=== PATIENT | female | born 1960 | race Caucasian/White ===

== ENCOUNTER → 2020-05-25 | Outpatient (CLI) | payer BC ==
--- NOTE | 2020-05-26 07:06 | US ---
EXAMINATION TYPE: US venous doppler duplex LE RT DATE OF EXAM: 05/25/2020 4:24 PM COMPARISON: NONE CLINICAL HISTORY: Elevated D Dimer R79.1. stress fracture to right foot, swelling in foot, no h/o dvt , elevated d-dimer SIDE PERFORMED: Right TECHNIQUE: The lower extremity deep venous system is examined utilizing real time linear array sonog fawad with graded compression, doppler sonography and color-flow sonography. VESSELS IMAGED: Common Femoral Vein Deep Femoral Vein Greater Saphenous Vein * Femoral Vein Popliteal Vein Small Saphenous Vein * Proximal Calf Veins (* superficial vessels) Right Leg: Negative for DVT IMPRESSION: Grayscale, color doppler, spectral doppler imaging performed of the deep veins of the lo wer extremities. There is normal flow, compressibility, vascular waveforms.
== END | disposition home or self-care (01) ==
LOC: RADUSWWP 16:06
PROVIDERS: ATTEND Family Medicine
DX: R79.1 Abnormal coagulation profile (principal)

== ENCOUNTER → 2020-05-26 | Outpatient (CLI) | payer BC | END | disposition home or self-care (01) | LOC: LABWHC1 16:08 | PROVIDERS: ATTEND Physician Assistant | DX: M79.671 Pain in right foot (principal); S92.331A Displaced fracture of third metatarsal bone, right foot, initial encounter for closed fracture | CPT/HCPCS: 36415; 82306 ==

== ENCOUNTER → 2020-07-26 | Outpatient (CLI) | payer BC ==
--- NOTE | 2020-07-26 13:48 | US ---
EXAMINATION TYPE: US venous doppler duplex LE RT DATE OF EXAM: 07/26/2020 12:40 PM COMPARISON: US 2020 CLINICAL HISTORY: M79.661 Pain in rt lower leg. Right ankle swelling SIDE PERFORMED: Right TECHNIQUE: The lower extremity deep venous system is examined utilizing real time linear array sonog fawad with graded compression, doppler sonography and color-flow sonography. VESSELS IMAGED: Common Femoral Vein Deep Femoral Vein Greater Saphenous Vein * Femoral Vein Popliteal Vein Small Saphenous Vein * Proximal Calf Veins (* superficial vessels) Right Leg: Appears negative for DVT IMPRESSION: 1. Right lower extremity ultrasound negative for deep venous thrombosis.
== END | disposition home or self-care (01) ==
LOC: RADUSWWP 12:07
PROVIDERS: ATTEND Orthopaedic Surgery
DX: R22.41 Localized swelling, mass and lump, right lower limb (principal)

== ENCOUNTER → 2020-08-09 | Outpatient (CLI) | payer BC ==
[2020-08-10 01:37] LABS: Basophils # (A) 0.06 X 10*3/uL (0.00-0.10); Basophils % (A) 1.1 %; Eosinophils # (A) 0.05 X 10*3/uL (0.04-0.35); Eosinophils % (A) 0.9 %; HCT 42.1 % (37.2-46.3); HGB 13.7 g/dL (12.0-15.0); Lymphocytes # (A) 1.96 X 10*3/uL (0.90-5.00); Lymphocytes % (A) 36.2 %; MCH 31.6 pg (27.0-32.0); MCHC 32.5 g/dL (32.0-37.0); Mean Platelet Volume 11.7 fL (9.5-12.2); Monocytes # (A) 0.49 X 10*3/uL (0.20-1.00); Monocytes % (A) 9.1 %; Neutrophils # (A) 2.84 X 10*3/uL (1.80-7.70); Neutrophils % (A) 52.5 %; Platelet Count 222 X 10*3/uL (140-440); RBC 4.34 X 10*6/uL (4.10-5.20); RDW 12.2 % (11.5-14.5); WBC 5.41 X 10*3/uL (4.50-10.00)
[2020-08-10 02:45] LABS: C Reactive Protein <0.4 mg/dL (0.0-0.8); Uric Acid 3.7 mg/dL (2.9-7.7)
[2020-08-10 04:38] LABS: Erythrocyte Sedimentation Rate 5 mm/Hr (0-30)
[2020-08-10 11:45] LABS: Anti-DNA, DS unit <1.0 IU/mL; DNA Double-Stranded NEGATIVE (NEGATIVE)
[2020-08-11 11:49] LABS: HLA B27 NEGATIVE
== END | disposition home or self-care (01) ==
LOC: LABWHC1 11:32
PROVIDERS: ATTEND Orthopaedic Surgery
DX: M25.50 Pain in unspecified joint (principal)
CPT/HCPCS: 36415; 84550; 85025; 85652; 86038; 86140; 86225; 86812

== ENCOUNTER → 2021-04-19 | Outpatient (CLI) | payer BC ==
--- NOTE | 2021-04-19 14:56 | XR ---
EXAMINATION TYPE: XR chest 2V DATE OF EXAM: 04/19/2021 COMPARISON: NONE TECHNIQUE: PA and lateral views submitted. HISTORY: Chest pain FINDINGS: The lungs are clear and there is no pneumothorax, pleural effusion, or focal pneumonia. Biapical ple ural thickening. Hyperinflation suggests COPD. Hypertrophic and degenerative change of the spine. Hea rt size normal. No overt failure. IMPRESSION: 1. COPD with biapical pleural thickening.
== END | disposition home or self-care (01) ==
LOC: RADXRMAIN 14:18
PROVIDERS: ATTEND Family Medicine
DX: J44.9 Chronic obstructive pulmonary disease, unspecified (principal); J92.9 Pleural plaque without asbestos
CPT/HCPCS: 71046

== ENCOUNTER → 2021-11-21 | Outpatient (CLI) | payer BC | END | disposition home or self-care (01) | LOC: LABWHC1 10:40 | PROVIDERS: ATTEND Family Medicine | DX: Z20.822 Contact with and (suspected) exposure to COVID-19 (principal) | CPT/HCPCS: U0003; U0005 ==

== ENCOUNTER → 2022-09-24 | Outpatient (CLI) | payer BC ==
--- NOTE | 2022-09-24 16:13 | XR ---
EXAMINATION TYPE: XR shoulder complete LT DATE OF EXAM: 09/24/2022 2:44 PM INDICATION: Patient age:Female; 62 years old; Reason for study: M25.512 PAIN IN LEFT SHOULDER; COMPARISON: None TECHNIQUE: The left shoulder was examined in AP, internally rotated and scapular Y projections. FINDINGS: No evidence of acute osseous pathology, joint dislocation, or soft tissue swelling. The remaining por tions of the visualized chest are unremarkable. IMPRESSION: No acute osseous pathology.
== END | disposition home or self-care (01) ==
LOC: RADXRMAIN 14:31
PROVIDERS: ATTEND Nurse Practitioner Family
DX: M25.512 Pain in left shoulder (principal)

== ENCOUNTER 2024-11-10 20:15 | Emergency (ER) | payer BC ==
--- NOTE | 2024-11-10 20:38 | ED ---
Fever HPI - General Chief Complaint: Fever Stated Complaint: ache, fever, chest pressure, phlem Time Seen by Provider: 11/10/24 20:35 Source: patient, RN notes reviewed, old records reviewed Mode of arrival: ambulatory Limitations: no limitations - History of Present Illness Complaint: fever, malaise -: days(s) Temperature Source: subjective Context: sick contacts Associated Symptoms: myalgias Treatments Prior to Arrival: none - Related Data Allergies Allergy/AdvReac Type Severity Reaction Status Date / Time No Known Allergies Allergy Verified 11/10/24 20:29 Review of Systems ROS Statement: Those systems with pertinent positive or pertinent negative responses have been documented in the HPI. ROS Other: All systems not noted in ROS Statement are negative. Past Medical History Past Medical History: COPD, Thyroid Disorder History of Any Multi-Drug Resistant Organisms: None Reported Past Surgical History: Cholecystectomy Past Psychological History: No Psychological Hx Reported Smoking Status: Current every day smoker General Exam Limitations: no limitations General appearance: alert, in no apparent distress Head exam: Present: atraumatic, normocephalic, normal inspection Eye exam: Present: normal appearance, PERRL, EOMI. Absent: scleral icterus, conjunctival injection, periorbital swelling ENT exam: Present: normal exam, mucous membranes moist Neck exam: Present: normal inspection. Absent: tenderness, meningismus, lymphadenopathy Respiratory exam: Present: normal lung sounds bilaterally. Absent: respiratory distress, wheezes, rales, rhonchi, stridor Cardiovascular Exam: Present: regular rate, normal rhythm, normal heart sounds. Absent: systolic murmur, diastolic murmur, rubs, gallop, clicks GI/Abdominal exam: Present: soft, normal bowel sounds. Absent: distended, tenderness, guarding, rebound, rigid Extremities exam: Present: normal inspection, full ROM, normal capillary refill. Absent: tenderness, pedal edema, joint swelling, calf tenderness Back exam: Present: normal inspection Neurological exam: Present: alert, oriented X3, CN II-XII intact Psychiatric exam: Present: normal affect, normal mood Skin exam: Present: warm, dry, intact, normal color. Absent: rash Course Vital Signs 11/10/24 11/10/24 20:22 21:31 Temperature 99.4 F Pulse Rate 116 H 87 Respiratory 20 18 Rate Blood Pressure 121/78 126/81 O2 Sat by Pulse 90 L 93 L Oximetry - Reevaluation(s) Reevaluation #1: 11/10/24 20:37 Medical records reviewed Reevaluation #2: 11/10/24 22:39 Patient symptoms of improved, no significant distress here in the ER Reevaluation #3: 11/10/24 22:39 Patient informed of results and questions answered Reevaluation #4: Was pt. sent in by a medical professional or institution (, [facility], [facility] [facility], urgent care, hospital, or fpc...) When possible be specific @ -no Did you speak to anyone other than the patient for history (EMS, parent, family, police, friend...)? What history was obtained from this source @ -no Did you review nursing and triage notes (agree or disagree)? Why? @ -agree Are old charts reviewed (outside hosp., previous admission, EMS record, old EKG, old radiological studies, urgent care reports/EKG's, fpc records)? Report findings @ -yes Differential Diagnosis (chest pain, altered mental status, abdominal pain women, abdominal pain men, vaginal bleeding, weakness, fever, dyspnea, syncope, headache, dizziness, GI bleed, back pain, seizure, CVA, palpatations, mental health, musculoskeletal)? @ -prior EKG interpreted by me (3pts min.). @ -yes X-rays interpreted by me (1pt min.). @ -yes negative for acute disease CT interpreted by me (1pt min.). @ -no U/S interpreted by me (1pt. min.). @ -no What testing was considered but not performed or refused? (CT, X-rays, U/S, labs)? Why? @ -none What meds were considered but not given or refused? Why? @ -none Did you discuss the management of the patient with other professionals (pro fessionals i.e. , [facility], [facility], lab, RT, psych nurse, social worker health services, fishing tool supervisor, teacher, legal officer, business case analyst)? Give summary @ -no Was smoking cessation discussed for >3mins.? @ -no Was critical care preformed (if so, how long)? @ -no Were there social determinants of health that impacted care today? How? (Homelessness, low income, unemployed, alcoholism, drug addiction, transportation, low edu. Level, literacy, decrease access to med. care, shelter, rehab)? @ -none Was there de-escalation of care discussed even if they declined (Discuss DNR or withdrawal of care, Hospice)? DNR status @ -no What co-morbidities impacted this encounter? (DM, HTN, Smoking, COPD, CAD, Cancer, CVA, ARF, Chemo, Hep., AIDS, mental health diagnosis, sleep apnea, morbid obesity)? @ -none Was patient admitted / discharged? Hospital course, mention meds given and route, prescriptions, significant lab abnormalities, going to OR and other pertinent info. @ - Undiagnosed new problem with uncertain prognosis? @ -no Drug Therapy requiring intensive monitoring for toxicity (Heparin, Nitro, Insulin, Cardizem)? @ -no Were any procedures done? @ -no Diagnosis/symptom? @ - Acute, or Chronic, or Acute on Chronic? @ -Acute Uncomplicated (without systemic symptoms) or Complicated (systemic symptoms)? @ -Complicated Side effects of treatment? @ -no Exacerbation, Progression, or Severe Exacerbation? @ -exacerbation Poses a threat to life or bodily function? How? (Chest pain, [place], [place], pneumonia, PE, COPD, DKA, ARF, appy, cholecystitis, CVA, Diverticulitis, Homicidal, Suicidal, threat to staff... and all critical care pts) @ -yes Reevaluation #5: Differential Fever: Pneumonia, viral URI, endocarditis, myocarditis, pericarditis, otitis, sinusitis, peritonsillar Abscess, retropharyngeal Abscess, epiglottitis, peritonitis, appendicitis, Lindy cystitis, diverticulitis, hepatitis, colitis, UTI, PID, TOA, pyelonephritis, prostatitis, epididymitis, meningitis, encephalitis, pulmonary embolism, CVA, thyroid storm, pancreatitis, adrenal crisis, cavernous sinus thrombosis, this is not meant to be an all-inclusive list. Medical Decision Making - Medical Decision Making 64 female to the ED co cough and congestion. Patient is a smoker with history of COPD, x-ray negative, patient will continue medication for cough and can be discharged home - Lab Data Result diagrams: 11/10/24 20:50 11/10/24 20:50 Lab Results 11/10/24 11/10/24 11/10/24 Range/Units 20:50 20:50 20:50 WBC 13.71 H (4.50-10.00) 10*3/uL RBC 4.32 (4.10-5.20) 10*6/uL Hgb 14.0 (12.0-15.0) g/dL Hct 39.0 (37.2-46.3) % MCV 90.3 (80.0-97.0) fL MCH 32.4 H (27.0-32.0) pg MCHC 35.9 (32.0-37.0) g/dL Plt Count 185 (140-440) 10*3/uL MPV 11.3 (9.5-12.2) fL Immature Gran % (Auto) 0.6 % Neutrophils % 87.2 % Lymphocytes % 5.6 % Monocytes % 6.3 % Eosinophils % 0.0 % Basophils % 0.3 % Immature Gran # 0.08 H (0.00-0.04) 10*3/uL Neutrophils # 11.96 H (1.80-7.70) 10*3/uL Lymphocytes # 0.77 L (0.90-5.00) 10*3/uL Monocytes # 0.86 (0.20-1.00) 10*3/uL Eosinophils # 0.00 L (0.04-0.35) 10*3/uL Basophils # 0.04 (0.00-0.10) 10*3/uL PT 10.1 (10.0-12.5) sec INR 0.9 (<1.2) APTT 23.4 (22.0-30.0) sec Sodium 129 L (137-145) mmol/L Potassium 3.8 (3.5-5.1) mmol/L Chloride 97 L (98-107) mmol/L Carbon Dioxide 21 L (22-30) mmol/L Anion Gap 11 mmol/L BUN 12 (7-17) mg/dL Creatinine 0.71 (0.52-1.04) mg/dL Est GFR (CKD-EPI)AfAm >90 (>60 ml/min/1.73 sqM) Est GFR (CKD-EPI)NonAf >90 (>60 ml/min/1.73 sqM) Glucose 137 H (74-99) mg/dL Plasma Lactic Acid Everardo (0.7-2.0) mmol/L Calcium 9.1 (8.4-10.2) mg/dL Phosphorus 2.5 (2.5-4.5) mg/dL Magnesium 1.9 (1.6-2.3) mg/dL Total Bilirubin 0.9 (0.2-1.3) mg/dL AST 24 (14-36) U/L ALT 21 (4-34) U/L Alkaline Phosphatase 117 (38-126) U/L Troponin I (0.000-0.034) ng/mL NT-Pro-B Natriuret Pep 75 pg/mL Total Protein 7.0 (6.3-8.2) g/dL Albumin 4.3 (3.5-5.0) g/dL Influenza Type A (PCR) (Not Detectd) Influenza Type B (PCR) (Not Detectd) RSV (PCR) (Not Detectd) SARS-CoV-2 (PCR) (Not Detectd) 11/10/24 11/10/24 11/10/24 Range/Units 20:50 20:50 20:50 WBC (4.50-10.00) 10*3/uL RBC (4.10-5.20) 10*6/uL Hgb (12.0-15.0) g/dL Hct (37.2-46.3) % MCV (80.0-97.0) fL MCH (27.0-32.0) pg MCHC (32.0-37.0) g/dL Plt Count (140-440) 10*3/uL MPV (9.5-12.2) fL Immature Gran % (Auto) % Neutrophils % % Lymphocytes % % Monocytes % % Eosinophils % % Basophils % % Immature Gran # (0.00-0.04) 10*3/uL Neutrophils # (1.80-7.70) 10*3/uL Lymphocytes # (0.90-5.00) 10*3/uL Monocytes # (0.20-1.00) 10*3/uL Eosinophils # (0.04-0.35) 10*3/uL Basophils # (0.00-0.10) 10*3/uL PT (10.0-12.5) sec INR (<1.2) APTT (22.0-30.0) sec Sodium (137-145) mmol/L Potassium (3.5-5.1) mmol/L Chloride (98-107) mmol/L Carbon Dioxide (22-30) mmol/L Anion Gap mmol/L BUN (7-17) mg/dL Creatinine (0.52-1.04) mg/dL Est GFR (CKD-EPI)AfAm (>60 ml/min/1.73 sqM) Est GFR (CKD-EPI)NonAf (>60 ml/min/1.73 sqM) Glucose (74-99) mg/dL Plasma Lactic Acid Everardo 1.4 (0.7-2.0) mmol/L Calcium (8.4-10.2) mg/dL Phosphorus (2.5-4.5) mg/dL Magnesium (1.6-2.3) mg/dL Total Bilirubin (0.2-1.3) mg/dL AST (14-36) U/L ALT (4-34) U/L Alkaline Phosphatase (38-126) U/L Troponin I <0.012 (0.000-0.034) ng/mL NT-Pro-B Natriuret Pep pg/mL Total Protein (6.3-8.2) g/dL Albumin (3.5-5.0) g/dL Influenza Type A (PCR) Not Detected (Not Detectd) Influenza Type B (PCR) Not Detected (Not Detectd) RSV (PCR) Not Detected (Not Detectd) SARS-CoV-2 (PCR) Not Detected (Not Detectd) - EKG Data -: EKG Interpreted by Me (EKG is sinus tachycardia 105 MO 161 QRS 94 QTc 385) - Radiology Data Radiology results: report reviewed (Chest x-ray is negative for acute disease), image reviewed Disposition Clinical Impression: Acute bronchitis Disposition: HOME SELF-CARE Condition: Good Instructions (If sedation given, give patient instructions): Acute Bronchitis (ED) Is patient prescribed a controlled substance at d/c from ED?: No Referrals: Jeancarlos Melgoza DO [Primary Care Provider] - 1-2 days Time of Disposition: 22:40
[2024-11-10 21:02] LABS: Basophils # (A) 0.04 10*3/uL (0.00-0.10); Basophils % (A) 0.3 %; Eosinophils # (A) 0.00 10*3/uL (0.04-0.35); Eosinophils % (A) 0.0 %; HCT 39.0 % (37.2-46.3); HGB 14.0 g/dL (12.0-15.0); Lymphocytes # (A) 0.77 10*3/uL (0.90-5.00); Lymphocytes % (A) 5.6 %; MCH 32.4 pg (27.0-32.0); MCHC 35.9 g/dL (32.0-37.0); MCV 90.3 fL (80.0-97.0); Monocytes # (A) 0.86 10*3/uL (0.20-1.00); Monocytes % (A) 6.3 %; Neutrophils # (A) 11.96 10*3/uL (1.80-7.70); Neutrophils % (A) 87.2 %; Platelet Count 185 10*3/uL (140-440); RBC 4.32 10*6/uL (4.10-5.20); RDW 11.8 % (11.5-14.5); WBC 13.71 10*3/uL (4.50-10.00)
[2024-11-10] MEDS: IBUPROFEN 600 MG TAB PO STA (21:08)
[2024-11-10 21:12] LABS: INR 0.9 (<1.2); Partial Thromboplastin Time 23.4 sec (22.0-30.0); Prothrombin Time 10.1 sec (10.0-12.5)
[2024-11-10] MEDS: ACETAMINOPHEN TAB 500 MG TAB PO STA (21:19)
[2024-11-10] MEDS: SODIUM CHLORIDE 0.9% 1,000 ML IV ONE (21:20)
[2024-11-10 21:21] LABS: ALT 21 U/L (4-34); AST 24 U/L (14-36); African American GFR (CKD) >90 (>60 ml/min/1.73 sqM); Albumin 4.3 g/dL (3.5-5.0); Alkaline Phosphatase 117 U/L (38-126); Anion Gap 11 mmol/L; Blood Urea Nitrogen 12 mg/dL (7-17); Calcium 9.1 mg/dL (8.4-10.2); Carbon Dioxide 21 mmol/L (22-30); Chloride 97 mmol/L (98-107); Glucose 137 mg/dL (74-99); Magnesium 1.9 mg/dL (1.6-2.3); Non-African American GFR(CKD) >90 (>60 ml/min/1.73 sqM); Potassium 3.8 mmol/L (3.5-5.1); Sodium 129 mmol/L (137-145); Total Protein 7.0 g/dL (6.3-8.2)
[2024-11-10] MEDS: SODIUM CHLORIDE 0.9% 1,000 ML IV SCH (21:21)
[2024-11-10] MEDS: ONDANSETRON 4 MG/2 ML VIAL IVP STA (21:24)
--- NOTE | 2024-11-10 21:27 | XR ---
EXAMINATION TYPE: XR chest 2V DATE OF EXAM: 11/10/2024 9:07 PM COMPARISON: Chest radiographs from 04/19/2021. CLINICAL INDICATION: Female, 64 years old with history of Weakness; [facility] TECHNIQUE: XR chest 2V Frontal and lateral views of the chest. FINDINGS: Lungs/Pleura: There is flattening of the diaphragm with increased lucency of the lungs. No evidence o f pneumothorax, pleural effusion or focal consolidation. Pulmonary vascularity: Unremarkable. Heart/mediastinum: Cardiomediastinal silhouette is unremarkable. Musculoskeletal: No acute osseous pathology. IMPRESSION: 1. No acute cardiopulmonary disease process. 2. COPD changes. [facility], , 11/10/2024 9:24 PM
[2024-11-10 21:30] LABS: NT-Pro-B-Type Natriuretic Pept 75 pg/mL
[2024-11-10 21:39] LABS: RSV Not Detected (Not Detectd)
[2024-11-10] MEDS: BENZONATATE 100 MG CAP PO STA (23:05)
[2024-11-10] MEDS: DEXAMETHASONE SOD PHOSPHATE 10 MG/ML 1 ML VIAL IVP STA (23:05)
[2024-11-10 23:14] VITALS: BP 124/76
[2024-11-10] MEDS: IPRATROPIUM-ALBUTEROL 3 ML NEB INHALATION STA (23:19)
[2024-11-10 23:22] VITALS: RESP 18
[2024-11-10 23:27] VITALS: PULSE 80
[2024-11-10 23:37] VITALS: TEMP 98.9
[2024-11-10 23:59] LABS: Amorphous Sediment,Urine Rare /hpf; Bacteria,Urine Occasional /hpf; Bilirubin,Urine Negative (Negative); Blood,Urine Small (Negative); Color,Urine Colorless; Glucose,Urine (UA) Negative (Negative); Ketones,Urine Negative (Negative); Leukocyte Esterase,Urine Negative (Negative); Nitrite,Urine Negative (Negative); PH, Urine 7.0 (5.0-8.0); Protein,Urine Negative (Negative); RBC,Urine 1 /hpf (0-5); Specific Gravity,Urine 1.003 (1.001-1.035); Squamous Epithelial Cell,Urine 3 /hpf (0-4); Urobilinogen,Urine <2.0 mg/dL (<2.0); WBC,Urine 2 /hpf (0-5)
== END 2024-11-10 23:38 | disposition home or self-care (01) ==
LOC: EC 20:15
DX: J20.9 Acute bronchitis, unspecified (principal); F17.200 Nicotine dependence, unspecified, uncomplicated
CPT/HCPCS: 36415; 94640; 93005; 83880; 80053; 83605; 83735; 84100; 84484; 85025; 85610; 85730; 81001; 87040; 87636; 71046; 99284; 96374; 96361 ×2; J1100